=== PATIENT | female | born 1990 | race African-American/Black ===

== ENCOUNTER 2020-09-18 00:30 | Observation (INO) | payer MEDICAID ==
[~2020-09-18] VITALS: Ht 167.6 cm; Wt 49.9 kg
[2020-09-18] VITALS (18 sets, daily range): BP systolic 91–113; BP diastolic 43–66
[2020-09-18] MEDS ORDERED: NALOXONE 0.4 MG/ML VIAL. IV PRN (02:00)
[2020-09-18] MEDS ORDERED: ONDANSETRON PF 4 MG/2 ML VIAL. IVP PRN (02:00)
[2020-09-18] MEDS ORDERED: 0.9 % SODIUM CHLORIDE 10 ML DISP.SYRIN. IV PRN (02:00)
[2020-09-18] MEDS ORDERED: MORPHINE SULFATE 2 MG/ML INJ. IV PRN (02:00)
[2020-09-18] MEDS: IV RINGERS,LACTATED 1000ML 1,000 ML IV SCH ×2 (02:40→14:01)
--- NOTE | 2020-09-18 07:00 | NUR ---
pt history of [birth year]2011 male infant, 10/09/2017 female
[2020-09-18 07:56] LABS: BASO % 0 % (0-3); EOS % 0 % (0-3); HEMATOCRIT 21.8 % (36.0-47.0); HEMOGLOBIN 7.7 g/dL (12.0-15.5); LYMPH # 1.6 x10^3/uL (1.0-4.8); LYMPH % 11 % (24-48); MEAN CORPUSCULAR HEMOGLOBIN 30 pg (25-35); MEAN CORPUSCULAR HGB CONC 35 g/dL (31-37); MEAN CORPUSCULAR VOLUME 86 fL (79-100); MONO # 0.8 x10^3/uL (0.0-1.1); MONO % 5 % (0-9); NEUT # 12.2 x10^3/uL (1.8-7.7); NEUT % 84 % (31-73); PLATELET COUNT 273 x10^3/uL (140-400); RED BLOOD COUNT 2.53 x10^6/uL (3.50-5.40); RED CELL DISTRIBUTION WIDTH 12.9 % (11.5-14.5); WHITE BLOOD COUNT 14.5 x10^3/uL (4.0-11.0)
--- NOTE | 2020-09-18 09:53 | PDOC1 ---
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 The pt states that she was in a lot of pain yesterday. Mostly in her pelvis, but yesterday she also felt the pain in her bottom. At home she nearly passed out a couple of times. Along with the abd tenderness she decided to present to the ER. In August the pt states that she had an unusual 2wk period with lead her to perform a , which returned positive. In the ER she was found to have a quant of 29,119. An u/s was performed revealing the following: No intrauterine gestational sac. Moderate amount of complex free fluid par ticularly in the left adnexa, likely hemorrhagic. Overall findings may represent early intrauterine with possible rupture ovarian cyst. However, ruptured ectopic cannot be excluded. At the time her Hgb was found to be 9.5 and her WBC was found to be 21.3. The pt was transferred to [place] for eval and management. This morning the pt states that she feels the pain is a better. Repeat lab revealed a Hgb of 7.7 and quant down to 25,442. 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 Not currently on contraception Menarche 17yo / regular cycles SH: no tob, no EtOH FH: CAD, colon CA Medications: Meds: Current Medications Medications (Trade) Dose Ordered Sig/Harriett Route PRN Reason Start Time Stop Time Status Last Admin Dose Admin Morphine Sulfate (Morphine Sulfate) 2 mg PRN Q2HR PRN IV SEVERE PAIN 7-10 09/18/20 02:00 09/18/20 02:42 Ringer's Solution 1,000 ml @ 50 mls/hr Q20H IV 09/18/20 02:30 09/18/20 02:40 Allergies: Coded Allergies: No Known Drug Allergies (Unverified , 09/18/20) Physical Exam: Vital Signs: Vital Signs Date Time Temp Pulse Resp B/P (MAP) Pulse Ox O2 Delivery O2 Flow Rate FiO2 09/18/20 08:25 98.8 96 16 91/52 (65) 99 Room Air 98.8 PE: GENERAL: No apparent distress. Alert and oriented. HEENT: Head normocephalic, atraumatic. NECK: Supple LUNGS: Clear to auscultation. HEART: RRR, S1, S2 present, pulses intact ABDOMEN: Soft, positive bowel sounds. Diffuse abd tenderness. EXTREMITIES: No cyanosis or edema. NEUROLOGIC: Normal speech, normal tone PSYCHIATRIC: Normal affect, normal mood. SKIN: No ulceration. Labs: Laboratory Tests Test 09/18/20 06:50 White Blood Count 14.5 x10^3/uL (4.0-11.0) H Red Blood Count 2.53 x10^6/uL (3.50-5.40) L Hemoglobin 7.7 g/dL (12.0-15.5) L Hematocrit 21.8 % (36.0-47.0) L Mean Corpuscular Volume 86 fL (79-100) Mean Corpuscular Hemoglobin 30 pg (25-35) Mean Corpuscular Hemoglobin Concent 35 g/dL (31-37) Red Cell Distribution Width 12.9 % (11.5-14.5) Platelet Count 273 x10^3/uL (140-400) Neutrophils (%) (Auto) 84 % (31-73) H Lymphocytes (%) (Auto) 11 % (24-48) L Monocytes (%) (Auto) 5 % (0-9) Eosinophils (%) (Auto) 0 % (0-3) Basophils (%) (Auto) 0 % (0-3) Neutrophils # (Auto) 12.2 x10^3/uL (1.8-7.7) H Lymphocytes # (Auto) 1.6 x10^3/uL (1.0-4.8) Monocytes # (Auto) 0.8 x10^3/uL (0.0-1.1) Eosinophils # (Auto) 0.0 x10^3/uL (0.0-0.7) Basophils # (Auto) 0.0 x10^3/uL (0.0-0.2) Maternal Serum HCG Beta Subunit 23193 mIU/mL (0-5) H Laboratory Tests 09/18/20 06:50 Laboratory Tests 09/18/20 06:50 Assessment & Plan: A/P 29y with rupture hemorrhagic ovarian cyst vs ectopic 1.) Rupture hemorrhagic ovarian cyst vs ectopic based on quant of 25,442 and no intrauterine found good chance that this is an ectopic . Since the pt has only had a drop in Hgb from 9.5 to 7.7 and has remained hemodynamic stable. Discussed expectant vs surgical management with the pt. With decreasing quant and hemodynamic stability expectant management would be reasonable. Discussed repeating a CBC at noon and if remains stable will repeat labs in the am. If Hgb continues to drop we will head toward s urgery. 2.) Pelvic pain improved 3.) Will cont follow BORIS MOISE MD Sep 18, 2020 09:53
[2020-09-18 13:04] LABS: BASO % 0 % (0-3); EOS % 0 % (0-3); LYMPH # 1.6 x10^3/uL (1.0-4.8); LYMPH % 14 % (24-48); MEAN CORPUSCULAR HEMOGLOBIN 30 pg (25-35); MEAN CORPUSCULAR HGB CONC 35 g/dL (31-37); MEAN CORPUSCULAR VOLUME 86 fL (79-100); MONO # 0.7 x10^3/uL (0.0-1.1); MONO % 6 % (0-9); NEUT % 80 % (31-73); PLATELET COUNT 251 x10^3/uL (140-400); RED BLOOD COUNT 2.29 x10^6/uL (3.50-5.40); RED CELL DISTRIBUTION WIDTH 12.9 % (11.5-14.5); WHITE BLOOD COUNT 11.3 x10^3/uL (4.0-11.0)
[2020-09-18 13:17] LABS: HEMATOCRIT 19.8 % (36.0-47.0); HEMOGLOBIN 6.9 g/dL (12.0-15.5)
--- NOTE | 2020-09-18 13:38 | NUR ---
covid test done and taken to lab . Dr Aragon notified of lab and came in
[2020-09-18] MEDS ORDERED: IV RINGERS,LACTATED 1000ML 1,000 ML IV SCH (14:15)
[2020-09-18] MEDS ORDERED: fentaNYL PF VIAL 100 MCG/2 ML VIAL IVP PRN ×2 (14:15)
[2020-09-18] MEDS ORDERED: HYDROmorphone 2 MG/ML VIAL IVP PRN (14:15)
[2020-09-18] MEDS ORDERED: PROCHLORPERAZINE 10 MG/2 ML VIAL. IVP PRN (14:15)
[2020-09-18] MEDS ORDERED: MORPHINE SULFATE 2 MG/ML INJ. IVP PRN (14:15)
--- NOTE | 2020-09-18 14:20 | NUR ---
to or . gown changed and pt cleaned up. jewelry taken off along with bra. Family notified and coming
[2020-09-18] MEDS ORDERED: ROCURONIUM 50 MG/5 ML VIAL. ONE (14:36)
[2020-09-18] MEDS ORDERED: ONDANSETRON PF 4 MG/2 ML VIAL. ONE (14:38)
[2020-09-18] MEDS ORDERED: LIDOCAINE 2% PF 5 ML VIAL. ONE (14:38)
[2020-09-18] MEDS ORDERED: PROPOFOL 10 MG/ML (20ML) VIAL. IV ONE (14:38)
[2020-09-18] MEDS ORDERED: DEXAMETHASONE SOD PHOS 4 MG/ML VIAL ONE (14:38)
[2020-09-18] MEDS ORDERED: fentaNYL PF VIAL 100 MCG/2 ML VIAL ONE (15:24)
[2020-09-18] MEDS ORDERED: SEVOFLURANE 61 TO 120 MINUTES. IH ONE (15:54)
[2020-09-18] MEDS ORDERED: NEOSTIGMINE METHYLSULFATE 5 MG/5 ML SYRINGE. ONE (16:02)
[2020-09-18] MEDS ORDERED: GLYCOPYRROLATE 1 MG/5 ML VIAL. ONE (16:16)
--- NOTE | 2020-09-18 16:37 | PDOC4 ---
OPERATIVE NOTE: PreOp Dx: 1.) Rupture hemorrhagic ovarian cyst vs ectopic , 2.) Anemia PostOp Dx: same Procedure: Dx lap, left salpingectomy Surgeon: Jorge Moise Anesthesia: GETA EBL: 50 cc (300 cc of blood in belly) UOP: 300 cc Findings: left ruptured ectopic Complications: None BORIS MOISE MD Sep 18, 2020 16:37
[2020-09-18] MEDS ORDERED: oxyCODONE/APAP 5/325 1 TAB TABLET PO PRN ×2 (18:00)
--- NOTE | 2020-09-18 18:17 | OP ---
DATE OF SURGERY: 09/18/2020 PREOPERATIVE DIAGNOSES: 1. Ruptured hemorrhagic ovarian cyst versus ectopic . 2. Anemia. POSTOPERATIVE DIAGNOSES: 1. Left ectopic . 2. Anemia. PROCEDURES: Diagnostic laparoscopy with left salpingectomy and removal of ectopic. SURGEON: Wesly Aragon MD TYPE OF ANESTHESIA: General endotracheal intubation. ESTIMATED BLOOD LOSS: 50 mL with 300 mL of blood in her pelvis. URINE OUTPUT: 300 mL FINDINGS: Left ruptured ectopic . COMPLICATIONS: None. DESCRIPTION OF PROCEDURE: The patient was taken to the operating room where general endotracheal intubation was obtained without difficulty. The patient was prepped and draped in a normal sterile fashion. Attention was first turned to the vagina where a sponge stick was placed for manipulation of the uterus. Attention was then turned to the abdomen where a 5 mm skin incision was made in the infraumbilical fold. A 5 mm trocar was then directly placed in the abdomen. Intra-abdominal placement was confirmed with laparoscope. The abdomen was then insufflated to 15 mmHg to visualize the pelvis. There was a significant amount of blood in the pelvis, approximately 300 mL. At that point, a second trocar was then placed on the left approximately two-thirds between the ischial spine and the umbilicus, first by making a 5 mm skin incision and then placing the 5 mm trocar under direct visualization of laparoscope. At that point, the suction operations liaison was used to clear most of the blood. Once the pelvis could be visualized, it was clear that there was a large ectopic on the left, still encased in the tube. It was not actively bleeding at that point. A third trocar was then placed on the right approximately two-thirds between the ischial spine and the umbilicus by first making a 5 mm skin incision followed by placing the trocar under direct visualization of laparoscope. At that point, the portion of the tube containing the ectopic was then grasped. The LigaSure device was used to cut lateral to the distal portion of the tube containing the ectopic. Once this was performed, the tube was then from the mesosalpinx with the LigaSure device with serial cuts until the portion of the tube that did not contain the ectopic was cut medially. This freed the ectopic at that point. The ectopic was placed into the anterior cul-de-sac. The 5 mm trocar in the umbilicus was then removed. The 5 mm skin incision was then extended to 10 mm to allow for a 10 mm trocar to be placed. Once this was done, the Biopatch bag was then placed into the pelvis, opened and the ectopic was placed inside the laparoscopic bag, which was then closed and brought through the 10 mm skin incision. The pelvis was then copiously irrigated with the suction. The area was copiously irrigated and cleared of all clots and debris. Good hemostasis was noted. At that point, the laparoscopic instruments were removed. The abdomen was desufflated and the trocars were then removed. The 10 mm fascial incision was then closed with 0 Vicryl in a running manner. Skin was then closed with 3-0 Monocryl in a subcuticular manner. The patient tolerated the procedure well. Sponges, laps and needles were correct x 2. The patient was taken to recovery room in stable condition. CEFERINO DR: Reji TID: [id number]
[2020-09-18] MEDS: IBUPROFEN 400 MG TABLET. PO PRN (18:18)
[2020-09-18] MEDS: MORPHINE SULFATE 2 MG/ML INJ. IV PRN (21:12)
[2020-09-19] VITALS (13 sets, daily range): BP systolic 88–109; BP diastolic 51–61
[2020-09-19] MEDS: IV RINGERS,LACTATED 1000ML 1,000 ML IV SCH (02:39)
[2020-09-19] MEDS: IBUPROFEN 400 MG TABLET. PO PRN ×3 (03:00→18:19)
[2020-09-19] MEDS: MORPHINE SULFATE 2 MG/ML INJ. IV PRN (03:50)
[2020-09-19 05:24] LABS: BASO % 0 % (0-3); EOS % 0 % (0-3); LYMPH # 1.4 x10^3/uL (1.0-4.8); LYMPH % 13 % (24-48); MEAN CORPUSCULAR HEMOGLOBIN 32 pg (25-35); MEAN CORPUSCULAR HGB CONC 36 g/dL (31-37); MEAN CORPUSCULAR VOLUME 88 fL (79-100); MONO # 0.6 x10^3/uL (0.0-1.1); MONO % 6 % (0-9); NEUT # 8.9 x10^3/uL (1.8-7.7); NEUT % 81 % (31-73); PLATELET COUNT 212 x10^3/uL (140-400); RED CELL DISTRIBUTION WIDTH 12.8 % (11.5-14.5); WHITE BLOOD COUNT 10.9 x10^3/uL (4.0-11.0)
[2020-09-19 05:46] LABS: HEMATOCRIT 17.5 % (36.0-47.0); HEMOGLOBIN 6.3 g/dL (12.0-15.5)
--- NOTE | 2020-09-19 11:06 | PDOC ---
PEDIATRIC OCCUPATIONAL THERAPIST PROGRESS NOTE Date of Service: DATE: 09/19/20 TIME: 11:05 Subjective: Discussed intraop findings with pt. Explained why we are giving a transfusion. Pt with good pain control. Jorge PO. Voiding. Objective: Vital Signs: Vital Signs Date Time Temp Pulse Resp B/P (MAP) Pulse Ox O2 Delivery O2 Flow Rate FiO2 09/18/20 08:25 98.8 96 16 91/52 (65) 99 Room Air 98.8 09/18/20 16:18 10 Vital Signs Date Time Temp Pulse Resp B/P (MAP) Pulse Ox O2 Delivery O2 Flow Rate FiO2 09/19/20 09:45 81 18 103/59 09/19/20 08:48 98.5 100 98.5 09/19/20 03:50 Room Air 09/18/20 16:33 10 Labs: Laboratory Tests Test 09/18/20 12:20 09/18/20 13:30 09/19/20 03:35 White Blood Count 11.3 x10^3/uL (4.0-11.0) H 10.9 x10^3/uL (4.0-11.0) Red Blood Count 2.29 x10^6/uL (3.50-5.40) L 2.00 x10^6/uL (3.50-5.40) L Hemoglobin 6.9 g/dL (12.0-15.5) *L 6.3 g/dL (12.0-15.5) *L Hematocrit 19.8 % (36.0-47.0) *L 17.5 % (36.0-47.0) *L Mean Corpuscular Volume 86 fL (79-100) 88 fL (79-100) Mean Corpuscular Hemoglobin 30 pg (25-35) 32 pg (25-35) Mean Corpuscular Hemoglobin Concent 35 g/dL (31-37) 36 g/dL (31-37) Red Cell Distribution Width 12.9 % (11.5-14.5) 12.8 % (11.5-14.5) Platelet Count 251 x10^3/uL (140-400) 212 x10^3/uL (140-400) Neutrophils (%) (Auto) 80 % (31-73) H 81 % (31-73) H Lymphocytes (%) (Auto) 14 % (24-48) L 13 % (24-48) L Monocytes (%) (Auto) 6 % (0-9) 6 % (0-9) Eosinophils (%) (Auto) 0 % (0-3) 0 % (0-3) Basophils (%) (Auto) 0 % (0-3) 0 % (0-3) Neutrophils # (Auto) 9.0 x10^3/uL (1.8-7.7) H 8.9 x10^3/uL (1.8-7.7) H Lymphocytes # (Auto) 1.6 x10^3/uL (1.0-4.8) 1.4 x10^3/uL (1.0-4.8) Monocytes # (Auto) 0.7 x10^3/uL (0.0-1.1) 0.6 x10^3/uL (0.0-1.1) Eosinophils # (Auto) 0.0 x10^3/uL (0.0-0.7) 0.0 x10^3/uL (0.0-0.7) Basophils # (Auto) 0.0 x10^3/uL (0.0-0.2) 0.0 x10^3/uL (0.0-0.2) SARS-CoV-2 Antigen (Rapid) Negative (NEGATIVE) Maternal Serum HCG Beta Subunit 75632 mIU/mL (0-5) H Laboratory Tests 09/18/20 12:20 09/19/20 03:35 Laboratory Tests 09/19/20 03:35 Physical Exam: GENERAL: No apparent distress. Alert and oriented. HEENT: Head normocephalic, atraumatic. NECK: Supple LUNGS: Clear to auscultation. HEART: RRR, S1, S2 present, pulses intact ABDOMEN: Soft, positive bowel sounds. EXTREMITIES: No cyanosis or edema. NEUROLOGIC: Normal speech, normal tone PSYCHIATRIC: Normal affect, normal mood. SKIN: No ulceration. Inc: dressing dry Assessment & Plan: A/P 29y POD #1 s/p Dx L/S, left salpingectomy for rupture ectopic 1.) PO doing well 2.) Anemia Hgb 7.7 -> 6.9 -> 6.3, giving 1U pRBC, repeat CBC after transfusion 3.) If appropriate rise in Hgb will d/c home BORIS MOISE MD Sep 19, 2020 11:06
[2020-09-19] MEDS ORDERED: DOCU-109 PO (14:00)
[2020-09-19] MEDS ORDERED: IBUP-1060 PO (14:00)
[2020-09-19] MEDS ORDERED: FERR325T14 PO (14:00)
[2020-09-19 19:01] LABS: HEMATOCRIT 22.3 % (36.0-47.0); HEMOGLOBIN 7.8 g/dL (12.0-15.5); RED BLOOD COUNT 2.6 x10^6/uL (3.50-5.40); RED CELL DISTRIBUTION WIDTH 13.6 % (11.5-14.5); WHITE BLOOD COUNT 9.9 x10^3/uL (4.0-11.0)
--- NOTE | 2020-09-19 19:15 | NUR ---
Discharge Note: FRANCO WOODARD3 SO LND Discharge instructions and discharge home medications reviewed with Patient and a copy given. All questions have been answered and understanding verbalized. The following instructions and handouts were given: [facility] Patient Discharge Instruction Sheet and Medication Schedule Hysterosalpingography Ectopic Discontinued lines and drains: peripheral IV removed from right AC. Patient discharged to home with self care via ambulation to private vehicle. Pt. discharged with steady gait and personal belongings in hand.
--- NOTE | 2020-09-20 09:36 | DS ---
DATE OF DISCHARGE: 09/19/2020 ADMISSION DIAGNOSES: 1. Ruptured hemorrhagic ovarian cyst versus ectopic . 2. Pelvic pain. 3. Anemia. DISCHARGE DIAGNOSES: Left ruptured ectopic , pelvic pain and anemia. PROCEDURE: Diagnostic laparoscopy with left salpingectomy for ectopic . BRIEF HOSPITAL COURSE: The patient is a 29-year-old 3, para 2-0-0-2 with a last menstrual period of 08/19/2020 who presented to the [facility] ER with cramping and spotting. The patient reported that the pain began the day prior to presentation to the ER, the patient had also passed out a couple of times along with abdominal tenderness. The ER ultimately performed a quantitative hCG, which returned at 29,000. An ultrasound revealed no intrauterine gestational sac, but a moderate amount of complex fluid, particularly on the left adnexa, likely hemorrhagic. Overall, the findings represented early intrauterine with possible rupture of cyst; however ruptured ectopic could not be excluded. In the ER at [facility] her hemoglobin was found to be 9.5 and she had a white count of 21.3. The patient was subsequently transferred to [place] for evaluation and management. The following morning, the patient's pain was improved, but her hemoglobin was found to be 7.7 and her quant was down to 25,000. Discussion was held with the patient versus expectant management versus surgical management. Decision was made to repeat the hemoglobin at noon to see if it was still decreasing and repeat hemoglobin returned at 6.9. The patient was then mobilized to surgery where she underwent a diagnostic laparoscopy revealing some blood in her belly and an obvious ectopic in the left tube. The patient underwent a diagnostic laparoscopy with the left salpingectomy. See operative note for full detail. The morning after the surgery the patient was found to have a hemoglobin of 6.3. The patient was given 1 unit of packed red blood cells. Her post-transfusion hemoglobin was found to be 7.8 and the patient was meeting all discharge criteria and was subsequently discharged home. DISCHARGE INSTRUCTIONS: The patient was told not to lift anything greater than 20 pounds and pelvic rest for 6 weeks. CALL IF: The patient was to call if she had fevers, chills, nausea, vomiting, abdominal pain, or any additional questions or concerns. FOLLOWUP APPOINTMENT: The patient was to follow up on 09/27 at 2 p.m. for appointment. DISCHARGE MEDICATIONS: The patient was given a prescription for Motrin 800 mg, Colace 100 mg, 30 pills; ferrous sulfate 325 mg, [address]: Reji TID: [id number]
--- NOTE | 2020-09-20 17:07 | PATHOLOGY ---
[facility] Accession Number: [id number] . 01 Material submitted: . fallopian tube - LEFT FALLOPIAN TUBE. Modifiers: left . 01 Clinical history: . ECTOPIC PREGNANCT LAPAROSCOPIC SALPINGECTOMY POSSIBLE ECTOPIC . 02 Diagnosis: Fallopian tube, laparoscopic left salpingectomy: - Ectopic tubal . - Hematosalpinx. (JPM:raul; 09/20/2020) MBR 09/20/2020 1426 Local . 02 Comment: There is no evidence of rupture. (EILEEN:raul; 09/20/2020) . 02 Electronically signed: . Mike Mojica MD, Pathologist NPI- [id number] . 01 Gross description: . The specimen is received in formalin, labeled "Inocente, Jabryanna and left fallopian tube". This consists of a segment of hernandez-brown fallopian tube without fimbriated end, measuring 5.7 cm in length by 2.8 cm in diameter. Sectioning reveals a red-brown friable luminal contents. Executive Account Manager sections are submitted in A1-A2. (MRF; 09/19/2020) MFE/MFE 09/20/2020 1425 Local . 02 Pathologist provided ICD-10: O00.90, N83.6 . 02 CPT . 924762 Specimen Comment: A courtesy copy of this report has been sent to [phone] Specimen Comment: Report sent to Performed at: 01 [facility] [address], [place] [id number] MD Zachary Aguilar MD Phone: [phone] Performed at: 02 [facility] [place] [id number] MD Mike Mojica MD Phone: [phone]
== END 2020-09-19 19:14 | disposition home or self-care (01) ==
LOC: 3 SO LND 00:30 → INTOOBSV 00:30
PROVIDERS: ADMIT Obstetrics & Gynecology; ATTEND Obstetrics & Gynecology
DX: O00.102 Left tubal pregnancy without intrauterine pregnancy (principal); O99.011 Anemia complicating pregnancy, first trimester; Z20.822 Contact with and (suspected) exposure to COVID-19; Z3A.00 Weeks of gestation of pregnancy not specified
CPT/HCPCS: 36415; 36430; 59151; 84702; 85025; 85027; 86850; 86900; 86901; 86920; 87426; 88305; 96361; 96374; 96376; A4364; A4930; A6219; G0378; G0379; J1100; J2270; J2405; J2704; J2710; J3010; J3490; J7120; P9016; U0003; U0005; A4452; A4657